=== PATIENT | female | born 1960 | race Caucasian/White ===

== ENCOUNTER 2020-09-15 00:51 | Outpatient (CLI) | payer OTHER, SELFPAY ==
--- NOTE | 2020-09-15 06:30 | DI.MAMMO_ITS ---
Exam(s) MAMMO SCREENING EXAM: MAMMO SCREENING CLINICAL HISTORY: screening,Z12.39 TECHNIQUE: Mammograms were interpreted according to the usual protocol including computer analysis w [employer] CAD system, tomosynthesis and C-view imaging. COMPARISON: FINDINGS: The breasts are of moderate density with fairly symmetrical distribution of fibroglandular tissue. N o dominant mass or clumped microcalcification is identified in either breast. Examination is compare d with previous examination of May 2010 and there is increased prominence of a focal area of asymme tric density of the retroareolar portion of the left breast seen on CC view only. Additional mammogr aphic views of left breast requested to include a CC spot compression view. No other significant lashay nge seen. IMPRESSION: Additional mammographic views of the left breast requested as described above to include a CC spot co mpression view. Breast ultrasound may be indicated as well depending on the results of the additiona l mammographic views. BI-RADS Category 0 - Assessment Incomplete: Need additional imaging evaluation Breast Density - Category B - Scattered areas of fibroglandular density
== END 2020-09-15 01:11 ==
PROVIDERS: PCP Nurse Practitioner Adult Health; Visit Provider Nurse Practitioner Adult Health
DX: Z12.31 Encounter for screening mammogram for malignant neoplasm of breast (principal); R92.8 Other abnormal and inconclusive findings on diagnostic imaging of breast
CPT/HCPCS: 77063; 77067

== ENCOUNTER 2020-09-15 03:25 | Outpatient (CLI) | payer OTHER, SELFPAY ==
[2020-09-15 09:01] LABS: ALT 21 U/L (14-59); AST 12 U/L (15-37); Albumin 3.6 g/dL (3.4-5.0); Alkaline Phosphatase 82 U/L (46-116); Anion Gap 10.4 mmol/L (3-11); BUN 19 mg/dL (7-18); Bilirubin, Total 0.9 mg/dL (0.2-1.0); CO2 25.6 mmol/L (21.0-32.0); CREATININE 0.8 mg/dL (0.55-1.02); Calcium 8.9 mg/dL (8.5-10.1); Calculated LDL 113 mg/dL (<100); Chloride 108 mmol/L (98-107); Cholesterol 217 mg/dL (<200); Glucose 104 mg/dL (74-106); HDL Cholesterol 85 mg/dL (40-60); Potassium 4.6 mmol/L (3.5-5.1); Sodium 144 mmol/L (136-145); TSH (W/Ref FT4) 2.05 uIU/mL (0.36-3.74); Total Protein 7.1 g/dL (6.4-8.2); Triglyceride 97 mg/dL (<150)
== END 2020-09-15 03:26 | disposition home or self-care (01) ==
LOC: LBO 03:25
PROVIDERS: PCP Nurse Practitioner Adult Health; Visit Provider Nurse Practitioner Adult Health
DX: E66.9 Obesity, unspecified (principal); Z68.30 Body mass index [BMI] 30.0-30.9, adult; Z13.220 Encounter for screening for lipoid disorders; Z13.1 Encounter for screening for diabetes mellitus; Z13.29 Encounter for screening for other suspected endocrine disorder
CPT/HCPCS: 36415; 80053; 80061; 84443

== ENCOUNTER 2020-10-14 02:09 | Outpatient (CLI) | payer OTHER, SELFPAY ==
--- NOTE | 2020-10-14 | DI.US_ITS ---
Exam(s) US BREAST LT COMPLETE EXAM: US BREAST LT COMPLETE CLINICAL HISTORY: F/U MAMMO, INCREASED PROMINENCE ASYMMETRIC DENSITY. TECHNIQUE: Complete ultrasound of the LEFT breast was performed including all 4 quadrants, the retro areolar region, and the ipsilateral axilla. COMPARISON: Prior mammograms were reviewed. today's diagnostic left breast mammogram images were als o reviewed FINDINGS: THERE IS NO EVIDENCE OF SOLID OR SIGNIFICANT CYSTIC LESIONS IN ALL 4 QUADRANTS of the left breast. Also no findings in the immediate retroareolar region. No dilated ducts. No evidence of obvious pap illoma. Ipsilateral left axilla is negative for significant adenopathy. IMPRESSION: Negative complete left breast ultrasound Appropriate follow-up is repeat left breast MAMMOGRAM in 6 months. Findings recommendations were discussed by myself with the patient today. BI-RADS Category 3 - 6 month - Probably Benign Finding: Recommend follow-up mammography in 6 months Breast Density - Category B - Scattered areas of fibroglandular density Breast density Category C or D implies that the patient has dense breast tissue. Dense breast tissue can make it harder to find cancer on a mammogram. Dense breast tissue is also associated with an incr eased risk of breast cancer. This information about the result of the mammogram report was provided to the patient to raise their awareness. Use this report when you speak with the patient about their risks for breast cancer, which includes their family history. At that time, you may recommend additional screening tests (Ultrasoun d or MRI) as these tests may add significant information. A negative radiographic report should not delay biopsy if a dominant or clinically suspicious mass is present. Up to ten percent of cancers are not identified on mammography. A negative report may reinforce clinical impression. Adenosis and dense breasts may obscure an underlying neoplasm. False positive reports average 6 to 10%. Patient will receive a letter notifying them of these results.
--- NOTE | 2020-10-14 11:00 | DI.MAMMO_ITS ---
Exam(s) MG MAMMO SCREEN CALL BACK UNI EXAM: MG MAMMO SCREEN CALL BACK UNI LEFT AND COMPLETE LEFT BREAST ULTRASOUND CLINICAL HISTORY: F/U MAMMO, INCREASED PROMINENCE ASYMMETRIC DENSITY. TECHNIQUE: Unilateral spot mammographic images were obtained with 3D tomosynthesis and utilizing [employer] aided detection (CAD). . Breast Ultrasound was also performed. COMPARISON: Prior mammograms were reviewed. This additional imaging was performed due to findings described on the recent screening mammogram of . FINDINGS: Additional mammographic views performed todaydo not dissipate the recently described nodular density in the retroareolar region however, on 1 image it appears to have a notch and therefore may be a smal l lymph node. Ultrasound performed today reveals no significant focal findings.. This implies that the nodule seen on the mammogram is probably a benign intramammary lymph node. This was a complete breast ultrasound- see separate report. IMPRESSION: As above. Please see separate breast ultrasound dictation report from today. Appropriate follow-up is repeat left breast MAMMOGRAM in 6 months. The patient was informed of these findings and recommendations by myself prior to leaving the depart ent today. BI-RADS Category 3 - 6 month - Probably Benign Finding: Recommend follow-up mammography in 6 months Breast Density - Category B - Scattered areas of fibroglandular density Breast density Category C or D implies that the patient has dense breast tissue. Dense breast tissue can make it harder to find cancer on a mammogram. Dense breast tissue is also associated with an incr eased risk of breast cancer. This information about the result of the mammogram report was provided to the patient to raise their awareness. Use this report when you speak with the patient about their risks for breast cancer, which includes their family history. At that time, you may recommend additional screening tests (Ultrasoun d or MRI) as these tests may add significant information. A negative radiographic report should not delay biopsy if a dominant or clinically suspicious mass is present. Up to ten percent of cancers are not identified on mammography. A negative report may reinforce clinical impression. Adenosis and dense breasts may obscure an underlying neoplasm. False positive reports average 6 to 10%. Patient will receive a letter notifying them of these results.
== END 2020-10-14 02:29 ==
PROVIDERS: PCP Nurse Practitioner Adult Health; Visit Provider Nurse Practitioner Adult Health
DX: Z12.31 Encounter for screening mammogram for malignant neoplasm of breast (principal); R92.8 Other abnormal and inconclusive findings on diagnostic imaging of breast
CPT/HCPCS: 76642; 77063; 77067

== ENCOUNTER 2020-11-24 12:48 | Outpatient (REF) | payer OTHER, SELFPAY ==
--- NOTE | 2020-11-24 12:30 | PAPFT_PTH ---
PATIENT: Ingrid Pinzon LOC: [facility] U#:[id number] AGE/SX: 60/F ROOM: RE11/24/[address]: Antoinette Lawrence APRN : 1960 BED: DIS: 11/24/2020 SPEC #: [id number] RECD: 11/25/20 13:02 STATUS: CHITO REQ #: [id number] ANDRESSA: 11/24/20 12:[address]: Antoinette Lawrence DEPT: [facility] Cytology RECD BY: Viridiana Forman Tissues: 1 - CX/ENDOCX FOR PAP SMEARS Procedures: PAP THIN PREP/UVM Screening HPV DNA PROBE Comments: [id number]
== END 2020-11-24 12:49 | disposition home or self-care (01) ==
LOC: LBN 12:48
PROVIDERS: PCP Nurse Practitioner Adult Health; Visit Provider Nurse Practitioner Adult Health
DX: Z12.4 Encounter for screening for malignant neoplasm of cervix (principal); Z11.51 Encounter for screening for human papillomavirus (HPV); Z87.42 Personal history of other diseases of the female genital tract
CPT/HCPCS: 88142; 87624

== ENCOUNTER 2021-04-07 19:38 | Outpatient (REF) | payer OTHER, SELFPAY ==
[2021-04-07 16:28] LABS: Source Nasal/Nares
[2021-04-07 20:42] LABS: COVID-19 PCR Negative (Negative)
== END 2021-04-07 19:39 | disposition home or self-care (01) ==
LOC: LBN 19:38
PROVIDERS: PCP Nurse Practitioner Adult Health; Visit Provider Advanced Practice Midwife
DX: Z20.822 Contact with and (suspected) exposure to COVID-19 (principal)
CPT/HCPCS: 87635

== ENCOUNTER 2021-05-17 02:11 | Outpatient (CLI) | payer OTHER, SELFPAY ==
[2021-05-17 09:54] LABS: Anion Gap 7.5 mmol/L (3-11); BUN 14 mg/dL (7-18); CO2 28.5 mmol/L (21.0-32.0); CREATININE 0.7 mg/dL (0.55-1.02); Calcium 8.9 mg/dL (8.5-10.1); Chloride 107 mmol/L (98-107); Glucose 100 mg/dL (74-106); Magnesium 2.1 mg/dL (1.8-2.4); Potassium 4.3 mmol/L (3.5-5.1); Sodium 143 mmol/L (136-145); TSH (W/Ref FT4) 3.33 uIU/mL (0.36-3.74)
== END 2021-05-17 02:12 | disposition home or self-care (01) ==
LOC: LBO 02:11
PROVIDERS: PCP Nurse Practitioner Adult Health; Visit Provider Nurse Practitioner Adult Health
DX: R00.2 Palpitations (principal)
CPT/HCPCS: 36415; 80048; 83735; 84443

== ENCOUNTER 2021-08-02 02:28 | Emergency (ER) | payer OTHER, SELFPAY ==
[2021-08-02 02:45] VITALS: BP 164/81; PULSE 80; RESP 18; TEMP 36.7; O2SAT 98
--- NOTE | 2021-08-02 02:45 | DI.RAD_ITS ---
Exam(s) XR NASAL BONES EXAM: XR NASAL BONES CLINICAL HISTORY: Fall, pain at R nasal. TECHNIQUE: 2D digital imaging was performed. COMPARISON: No exams were available for comparison FINDINGS: 3 views There fractures of the nasal bone, including a mildly depressed fracture of the tip of the nasal bone . There are no fluid levels in the maxillary scratch sinuses. IMPRESSION: Nasal bone fracture lines. Mild depression of the tip fragment. DATA REPOSITORY: RADIATION DOSE DELIVERED:
--- NOTE | 2021-08-02 02:45 | DI.RAD_ITS ---
Exam(s) XR TOE RT GREAT EXAM: XR TOE RT GREAT CLINICAL HISTORY: fall, pain. TECHNIQUE: 2D digital imaging was performed. COMPARISON: No exams were available for comparison FINDINGS: 3 views No evidence of fracture nor dislocation. No osseous lesions nor erosions. No radiopaque foreign bod y. Some degenerative changes evident in the medial aspect of the articulation between the base of th e great toe metatarsal and the medial cuneiform bone. IMPRESSION: As above. No fractures DATA REPOSITORY: RADIATION DOSE DELIVERED:
--- NOTE | 2021-08-02 02:59 | ED.GENADUL_ITS ---
Discharge Plan Disposition Patient Disposition: HOME Condition: Improving Discharge Details Clinical Impression: Facial laceration, Fracture closed, nasal bone Primary Care Provider: Antoinette Lawrence ED Provider: Arash Honeycutt Home Meds and New Rx's Prescriptions: Continued loratadine 10 mg capsule 10 mg PO DAILY [id number] Discharge Instructions Instructions: Nasal Fracture (ED), Facial Laceration (ED) Additional Instructions: Your tetanus is up-to-date as of 2020. Sutures will slowly dissolve over approximately 7 days time. Return if you develop a fever, foul-smelling discharge from the wound, or any other acute concerns. You will likely have increased muscular soreness tomorrow. You may develop bruising around the right eye and face. 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 She tripped on a cord in the patient's room falling over and striking her right forehead on the ground and damaging her right great toe. No loss of conscious. No neck or back injury. Bleeding ceased with pressure placed at the scene. Patient was brought to the ER for evaluation. She states her tetanus status is up-to-date. X-ray reveals minimally displaced nasal bone fracture. No evidence of bony injury of the foot. Patient was anesthetized, liberally cleansed and examined i n a bloodless field without evidence of foreign body of the supraorbital laceration. It was repaired with 2 interrupted absorbable sutures. Patient stable and appropriate for discharge to home. HPI General Mode of arrival: ambulatory . Date/Time Provider Initiated Documentation: 08/02/21 02:28 . Limitations to Documentation: no limitations . Information obtained by: patient . History of Present Illness 60 year old F presents to the emergency department with the chief complaint of Fall at work, R eye and R toe pain, described as moderate, Quality is described as dull, and is localized to the head and right. Patient reports no radiation. Patient started experiencing this minute(s) and it has been constant. improves with No relieving factors improve symptom(s), No exacerbating factors reported . Patient notes headaches; denies syncope. Patient did receive the following treatments prior to arrival, none Related Data Home Medications Medication Instructions Recorded Confirmed loratadine 10 mg capsule 10 mg PO DAILY PRN 08/06/20 08/02/21 Allergies Allergy/AdvReac Type Severity Reaction Status Date / Time ciprofloxacin [From Cipro] Allergy Severe rash Verified 08/02/21 02:51 shellfish derived Allergy Severe angioedema Verified 08/02/21 02:51 morphine Allergy Intermediate body rash, Verified 08/02/21 02:51 [From Duramorph (PF)] hives General Stated Complaint: Laceration JM: 3 Review of Systems Narrative: Denies loss of conscious. No neck/chest/back pain. Mild right toe pain. Otherwise well. [facility] All Active Problems (Updated 08/02/21 @ 03:38 by Arash Honeycutt MD) Facial laceration (Acute) Fracture closed, nasal bone (Acute) Palpitations (Acute) Elevated cholesterol (Chronic) Not a statin candidate--> TLCs Impaired fasting glucose (Chronic) 104 in 2020 5.5% 2015 & 2020 Category 3 mammography result with short follow-up interval suggested for probably benign finding (Acute) [facility] [place] second read L breast U/S: neg 12/2020 Obesity (BMI 30-39.9) (Chronic) Medical History Anemia lindsay-menopausal Surgical History History of 2 sections 11/1983 and 06/22/1988 S/P total knee arthroplasty (~2019) left S/P total knee arthroplasty (~2018) right Family History Mother , 87yo, ?SD Diabetes Father , age 59 Lung cancer Paternal Grandmother Cancer Social History Smoking/Tobacco Use Status: Never Smoking risk assessment performed?: Yes Alcohol Intake: current Alcohol Intake frequency: a few times a month Alcohol type: beer and wine Drug use: Never Substance use type: does not use Adopted: No Caregiver/Support person: No Foster care: No Household members: spouse Housing: condominium Do you need help understanding health information?: Rarely current occupation: instrument and control technician at [employer] Sexually active: Yes Do you think of yourself as: straight/heterosexual Current gender identity: female What is your relationship status?: Panel score (0-1 are the most socially isolated patients): 1 What type of physical activity do you participate in: walking Duration: 30-45 minutes/day Frequency: 3-4 times per week Seatbelt use: always Helmet use: No (NA) Drive intox or ride w/intox sprinkling truck driver: No Working smoke detector in home: Yes Fire extinguisher in home: Yes Carbon monox detector in home: Yes Do you feel safe at home: Yes Do you feel safe in your relationship?: Yes Exam Narrative Exam Narrative: GEN: awake, alert, oriented 3. Pleasant, well groomed, interactive. HEAD: Normocephalic ENT: Mucous membranes moist, oropharynx unremarkable, External ear exam unremarkable. No facial anesthesia. The right aspect of the nasal bridge is tender and mildly swollen. There is a horizontally oriented 1 cm laceration above the right eyebrow. EYES: PERRL, EOMI NECK: Full ROM, no KAREN, no menigismus CHEST/RESP: Nontender, clear to auscultation bilateral, no wheeze/rhonchi/rales CARDIOVASCULAR: RRR, no murmur, rub solo. 2+ Rad pulse bilateral ABDOMEN: Soft, nontender, no mass. +Bowel sounds EXT: Full ROM, no edema, no rash. Right great toe tender to palpation Neuro: Grossly normal neurologic exam, conversant, interactive. Psych: Speech fluent, thoughts congruent, affect normal Course Vital Signs Vital signs: Vital Signs Temperature 36.7 C 08/02/21 02:45 Pulse 80 08/02/21 02:45 Respiratory Rate 18 08/02/21 02:45 Blood Pressure 164/81 H 08/02/21 02:45 Pulse Oximetry 98 08/02/21 02:45 Temperature 36.7 C 08/02/21 02:45 Temperature Source Skin 08/02/21 02:45 Pulse 80 08/02/21 02:45 Respiratory Rate 18 08/02/21 02:45 Respiratory Effort 08/02/21 02:49 Blood Pressure 164/81 H 08/02/21 02:45 Blood Pressure Position Sitting 08/02/21 02:45 Pulse Oximetry 98 08/02/21 02:45 Oxygen Delivery Method Room Air 08/02/21 02:45 Oxygen Flow Rate 0 08/02/21 02:45 Pain Level 4 08/02/21 02:49 Procedures Laceration Laceration 1: Site: face Side (If applicable): right Size (cm): 1.5 Description: linear Depth: simple, single layer Local Anesthetic: Lidocaine 1% Amount of anesthesia used (mL): 1 Pre-repair: wound explored and deep structures intact Skin layer closed with: vicryl Size (cm): 5-0 Number of sutures: 2
[2021-08-02] MEDS: Acetaminophen 500 MG TAB 1000 MG PO (03:06)
--- NOTE | 2021-08-02 05:13 | DI.VRAD_ITS ---
PROCEDURE INFORMATION: Exam: XR Nasal Bones Exam date and time: 08/02/2021 3:16 AM Age: 60 years old Clinical indication: Injury or trauma; Work related; Blunt trauma (contusions or hematomas); Nose; Injury date: 08/02/21; Injury details: Fall, pain at R nasal TECHNIQUE: Imaging protocol: XR of the nasal bones. Views: Minimum of 3 views COMPARISON: No relevant prior studies available. FINDINGS: Sinuses: Well aerated. No opacification. Bones/joints: Minimal irregularity to the left nasal bone on the lateral projection Right nasal bone appears intact Soft tissues: Question mild swelling over the left nasal bone IMPRESSION: Minimal irregularity to the left nasal bone. Minimal fracture not excluded Dictated and Authenticated by: Mathew Bryant MD. Ordering:BENNIE Antoine MD
--- NOTE | 2021-08-02 05:14 | DI.VRAD_ITS ---
PROCEDURE INFORMATION: Exam: XR Right Toe(s) Exam date and time: 08/02/2021 3:18 AM Age: 60 years old Clinical indication: Injury or trauma; Work related; Blunt trauma; Toes; Right; Injury date: 08/02/21; Injury details: Fall, pain TECHNIQUE: Imaging protocol: XR Right toes. Views: Minimum 2 views. COMPARISON: No relevant prior studies available. FINDINGS: Bones/joints: No acute fracture or dislocation. Mild degenerative changes noted Soft tissues: Normal. IMPRESSION: No acute findings. Dictated and Authenticated by: Mathew Bryant MD. Ordering:BENNIE Antoine MD
== END 2021-08-02 03:41 | disposition home or self-care (01) ==
LOC: ER 03:24
PROVIDERS: Emergency Provider Emergency Medicine; PCP Nurse Practitioner Adult Health
DX: S01.81XA Laceration without foreign body of other part of head, initial encounter (principal); S02.2XXA Fracture of nasal bones, initial encounter for closed fracture; S99.821A Other specified injuries of right foot, initial encounter; W01.0XXA Fall on same level from slipping, tripping and stumbling without subsequent striking against object, initial encounter; Y99.0 Civilian activity done for income or pay
CPT/HCPCS: 12011; 99284; 70160; 73660; 99283

== ENCOUNTER 2021-11-28 18:53 | Outpatient (REF) | payer OTHER, SELFPAY ==
[2021-11-28 17:39] LABS: Bilirubin Negative (Negative); Blood Large (Negative); Clarity Cloudy (Clear); Glucose Negative (Negative); Ketones Negative (Negative); Leukocyte Esterase Large (Negative); Nitrite Negative (Negative); Urobilinogen 0.2 EU/dL (Up TO 0.2)
[2021-11-28 17:49] LABS: Epithelial Cells Negative HPF (Negative); Other Cells Mod Transitional (Negative); RBC >50 HPF (0-2); WBC >50 HPF (0-5)
[2021-11-28 17:50] LABS: Bacteria Rare HPF (Negative); C & S Indicated? Yes; Crystals Negative HPF (Negative); Mucus Negative (Negative)
== END 2021-11-28 18:54 | disposition home or self-care (01) ==
LOC: LBN 18:53
PROVIDERS: PCP Nurse Practitioner Adult Health; Visit Provider Nurse Practitioner Adult Health
DX: R30.0 Dysuria (principal)
CPT/HCPCS: 81003; 81015; 87086

== ENCOUNTER 2021-12-09 06:11 | Day surgery (SDC) | payer OTHER, SELFPAY ==
--- NOTE | 2021-12-08 10:59 | W.PM.HP.N ---
Date of service: 12/09/21 Assessment and Plan Assessment and plan (1) Colon cancer screening: Status: Acute Assessment and plan: Plan: Colonoscopy w/ general & natural airway. The?patient will be scheduled by my office. The pt understands that they need to do a bowel prep and the importance of hydration during this.? The patient understands there is a theoretical risk of renal failure.? For healthy patients we use Gatorade/Miralax Prep.? ?For anyone with renal concerns- GoLytely will be used. Plavix and coumadin will need to be held except in unusual circumstances. ? Patients in A. Fib do not need to be bridged with Lovenox or on CVA prophylaxis.? A baby ASA can be continued but full dose ASA needs to be stopped for 10 days prior to the procedure. A complete H & P is required within 30 days of the procedure.? GETA w/natural airway is used for the colonoscopy.? Colonoscopy does not require antibiotics prophylaxis. Thank you for allowing me to participate in the care of this Patient.? A copy of the Endoscopy report will be forwarded to your office. Informed consent is obtained for the procedural (explained in simple layman's terms that?the pt and/or family could understand) explaining risks vs benefits and alternatives to the procedure and consequences if we do not do the procedure and need/rational for the procedure. Risks include but are not limited to: bleeding, infection, perforation of colon.? This would necessitate emergency surgery to repair the damage w/ possible ostomy; and other associated complications w/ the required surgery. ? Also complications of anesthesia including aspiration, [place]/CVA/. I discussed with the?patient would they could expect during the procedure, post procedure and recovery time and risks.? The patient understands that they need to have a ride home after the procedure.? The patient was given all this information in writing and expressed understanding. to your office.? If there are any questions or concerns please feel free to contact our office.? Patients at highest risk for IE???Prophylaxis is suggested only in the setting of conditions associated with the highest risk of an adverse outcome if IE occurs. These include [7https://www.Viva[employer].com/contents/[email or web address]-[email or web address]-amk-[email or web address]-[email or web address]-[email or web address]/abstract/7]: ?Prosthetic cardiac valve or material ?Presence of cardiac prosthetic valve ?Transcatheter implantation of prosthetic valves ?Cardiac valve repair with devices, including annuloplasty, rings, or clips ?Left ventricular assist devices or implantable heart ?Previous, relapse, or recurrent IE ?Congenital heart disease ?Unrepaired cyanotic congenital heart disease, including palliative shunts and conduits ?Completely repaired congenital heart defect with prosthetic material or device, whether placed by surgery or by transcatheter during the first six months after the procedure ?Repaired congenital heart disease with residual defects at the site of or adjacent to the site of a prosthetic patch or prosthetic device ?Surgical or transcatheter pulmonary artery valve or conduit placement such as Sherlyn valve and Contegra conduit ?Cardiac transplant recipients who develop cardiac valvulopathy Situation ?Agent? Adult?? Dosing? Child Dosing Adults Children Oral Amoxicillin? 2g po? 50mg/Kg? po 2 g 50 mg/kg Unable to take oral medication Ampicillin? 2g IMor IV? 50mg/kg IM or IV 2 g IM or IV 50 mg/kg IM or IV OR ? ? Cefazolin or ceftriaxone? 1g IM or IV? 50mg/kg IM or IV 1 g IM or IV 50 mg/kg IM or IV Allergic to penicillin or ampicillin?oral Cephalexin?2g po? 15mg/kg 2 g 50 mg/kg OR ? ? Azithromycin or clarithromycin? 500mg 500 mg 15 mg/kg OR ? ? Doxycycline? 100mg 100 mg <45 kg, 2.2 mg/kg >45 kg, 100 mg Allergic to penicillin or ampicillin and unable to take oral medication Cefazolin or ceftriaxone? 1g IM or IV 1 g IM or IV 50 mg/kg IM or IV Antibiotic regimens for prevention of endocarditis prior to dental procedures* Clindamycin is no longer recommended for antibiotic prophylaxis prior to dental procedures. History of Present Illness Narrative: clinic consult 08/21: Mrs Pinzon is a pleasant 60-year-old female who is here today to discuss her first screening colonoscopy.? She denies any melena, hematochezia, abdominal pain, unintentional weight loss or family history of colon cancer.? She does have an external hemorrhoid which sometimes will bleed a little bit on the tissue paper.? Otherwise she is healthy.? She only takes loratadine for seasonal allergies.? She does tell me that she has difficulty waking up from anesthesia even propofol. She denies any chest pain or shortness of breath with activity. Anesthesia: general (without airway) Previous surgical intolerances: No Previous surgical complications: No Pulmonary risk factors: age > 60 Date of surgery: 09/23/21 Planned procedure: Yes Sleep apnea risks: No Can climb one flight of stairs (12-13 steps) in less than 30 seconds without stopping and without symptoms: Yes The surgery proposed for this patient is: low risk Active cardiac conditions: none Active risk factors: none ASA (acetylsalicylic acid): not used Beta blockers: not used -Patient is here today for colonoscopy. She completed a bowel prep. The resulting effluent is just a clear yellow. She is not having any abdominal pain or nausea currently. She is not currently having any chest pain/chest pressure, shortness of breath, productive cough, fever or chills. She has no signs of COVID/no one in the household has COVID. She has not had any changes in her medications, allergy profile or health status. She has had no recent visits to the emergency department or recent accidents. All questions are answered and she is stable for the proposed procedure today. Review of Systems All systems reviewed & are unremarkable except as noted in HPI and below PFSH All Active Problems (Updated 12/08/21 @ 11:03 by Naty Coats DO) Colon cancer screening (Acute) Gross hematuria (Acute ~10/2021) probably UTI Palpitations (Acute) Elevated cholesterol (Chronic) Not a statin candidate--> TLCs Impaired fasting glucose (Chronic) 104 in 2020 5.5% 2015 & 2020 Category 3 mammography result with short follow-up interval suggested for probably benign finding (Acute) [facility] [place] breast U/S: neg 12/2020 Obesity (BMI 30-39.9) (Chronic) Medical History Anemia lindsay-menopausal Great toe pain Right Surgical History History of 2 sections 11/1983 and 06/22/1988 S/P total knee arthroplasty (~2019) left S/P total knee arthroplasty (~2018) right Family History Mother , 87yo, ?[place] Diabetes Father , age 59 Lung cancer Paternal Grandmother Cancer Social History Smoking/Tobacco Use Status: Never Smoking risk assessment performed?: Yes Alcohol Intake: current Alcohol Intake frequency: a few times a month Alcohol type: beer and wine Drug use: Never Substance use type: does not use Adopted: No Caregiver/Support person: No Foster care: No Household members: spouse Housing: condominium Do you need help understanding health information?: Rarely current occupation: production supervisor off shift at [employer] Sexually active: Yes Do you think of yourself as: straight/heterosexual Current gender identity: female What is your relationship status?: Panel score (0-1 are the most socially isolated patients): 1 What type of physical activity do you participate in: walking Duration: 30-45 minutes/day Frequency: 3-4 times per week Seatbelt use: always Helmet use: No (NA) Drive intox or ride w/intox train driver: No Working smoke detector in home: Yes Fire extinguisher in home: Yes Carbon monox detector in home: Yes Do you feel safe at home: Yes Do you feel safe in your relationship?: Yes Meds Allergies and Home Medications Allergies Allergy/AdvReac Type Severity Reaction Status Date / Time ciprofloxacin [From Cipro] Allergy Severe rash Verified 12/01/21 08:42 shellfish derived Allergy Severe angioedema Verified 12/01/21 08:42 morphine Allergy Intermediate body rash, Verified 12/01/21 08:42 [From Duramorph (PF)] hives Home Medications Medication Instructions Recorded Confirmed Type loratadine 10 mg capsule 10 mg PO DAILY PRN 08/06/20 12/01/21 History Exam Narrative Exam Narrative: GENERAL APPEARANCE: Alert, healthy appearance, oriented, in no acute distress SKIN: No rashes.? No breakdown HYDRATION: Well hydrated HEAD, EYES, EARS, NECK, THROAT: Head is normocephalic, pupils equal, round, reactive to light and accommodation, ocular movement intact, sclera clear and no jaundice. ?Dentition intact. NECK: Supple, Trachea midline. No JVD. LUNGS: normal respiration/nl chest excursion. ?Clear to auscultation B/l no R/R/W HEART: Regular rate and rhythm, EXTREMITY: No edema or cyanosis? no leg pain, redness, swelling.? ABDOMEN: non tender to palpation, no masses or distention, no hernias. Normal bowel sounds NEURO: no focal neuro deficits.
--- NOTE | 2021-12-08 18:46 | W.COLOREPORT ---
Colonoscopy Report Date of procedure: 12/09/21 Pre-op diagnosis general: CRC screening Post-op diagnosis procedure note: other (I/E hemorrhoids. ) Surgeon: Naty Coats Anesthesia Type: General:No Airway Estimated blood loss (mL): 0 Pathology: none sent Complications: None Disposition: same day Prep: Miralax/Dulcolax Retraction Time: 7 Procedure Description: After informed consent was obtained the patient was taken to the procedure room and placed in a left decubitous position. Monitors were applied and a time out was done. The patients name, date of , procedure, allergies to medications and metal in their body was reviewed. The patient was then sedated. Once sedated and comfortable a rectal exam was done. External exam: lg ext hemorrhoids without thrombosis. Internal exam revealed a normal sphincter tone and no palpable masses. The scope was then introduced and retrofelexed. Grade 1 internal hemorrhoids and hemorrhoidal tags, were identified. The scope was then advanced to the cecum without difficulty. The TI and appendiceal orifice were identified. The prep was BB PS 2 in the cecum and right colon in 3 in transverse and left/sigmoid and rectum for a total of 8 . The scope was then slowly retracted over 7 minutes back into the rectum. There are no polyps, AVMs, or diverticula visualized today. The colon is pink and healthy with a normal vascular pattern.. The scope was removed and the patient was woken up and taken back to Same day surgery in stable condition. The patient tolerated the procedure well and there were no immediate complications. Follow up: The patient should follow up in 10 years unless they develop changes in bowel habits or other new gastrointestinal complaints.
--- NOTE | 2021-12-08 18:48 | PDOC.DSDIS_ITS ---
Discharge Plan Disposition Patient Disposition: HOME Condition: Good Discharge Details Reason For Visit: colon scope Attending Provider: Naty Coats Primary Care Provider: Antoinette Lawrence Home Meds and New Rx's Prescriptions: No Action loratadine 10 mg capsule 10 mg PO DAILY PRN Discharge Instructions Additional Instructions: DSU Colonoscopy Post- Op Instructions Instructions for Everyone who is given Anesthesia: For your safety, please do the following for the next twenty-four (24) hours: *Do Not operate a motor vehicle (car, truck, motorcycle, etc.) *Do Not drink alcoholic beverages or use any recreational drugs for the first 24 hours or while taking pain medications. The medications in your body may have a reaction that can be dangerous. *Do Not make any important decisions or sign any important papers. Findings: ext. hemorrhoids Otherwise normal colon Follow up: Repeat in 10 years time 1. No lifting over 20 pounds or strenuous activity for the first 24 hours after your procedure. After 24 hours there are no restrictions on your activity but you may feel fatigued for a few days. 2. After you arrive home you may have a light meal and return to your normal diet as you can tolerate it without feeling sick to your stomach. 3. You may have a bloated, gaseous feeling in your belly (abdomen) after a colonoscopy. Passing gas and belching will help. Walking or lying down on your left side with your knees flexed may relieve the discomfort. Call the office at [phone] (Office) or [phone] (Hospital) right away if you notice any of the following: a.Vomiting of blood or ?coffee ground stools?. b.Rectal bleeding 1Tbsp, blood clots or continuous bleeding. c.Severe belly (abdominal) pain. d.A hard distended belly (abdomen) and an inability to pass gas. 4. Please don?t expect to have a normal BM (bowel movement) for 2-3 days after your procedure. 5. If there are questions regarding the findings of your procedure, please contact your doctor 6. If you are unable to contact your doctor with a problem, contact the hospital at [phone]. 7. Continue all your regular medications unless directed otherwise. I understand the above instructions and have no questions. Signature of Patient or Adult Escort Name of Responsible Adult Escort Signature of Nurse Date/Time Activity:: see above Diet:: see above Discharge Orders Discharge Orders: Discharge Order (Routine); Ordered 12/08/21 Ordered By: Naty Coats DS: Diagnosis Discharge Diagnosis (1) Colon cancer screening: Status: Acute (2) External hemorrhoid: Status: Acute (3) S/P colonoscopy: Status: Acute
[2021-12-09 06:32] VITALS: BP 138/88; PULSE 97; RESP 16; TEMP 36.5; O2SAT 95
[2021-12-09] MEDS: Lactated Ringers 1,000 ML 80 ML IV (06:46)
--- NOTE | 2021-12-09 07:03 | W.ANESPRE ---
General Info Date of Service Date Performed: 12/09/21 Height: 5 ft 1.5 in Weight: 78.7 kg Body Mass Index (BMI): 32.2 Surgical Procedure: Operation Date: 12/09/21 07:35 Proposed Procedure Side Surgeon masood Coats, DO Meds Allergies and Home Medications Allergies Allergy/AdvReac Type Severity Reaction Status Date / Time ciprofloxacin [From Cipro] Allergy Severe rash Verified 12/09/21 06:31 shellfish derived Allergy Severe angioedema Verified 12/09/21 06:31 morphine Allergy Intermediate body rash, Verified 12/09/21 06:31 [From Duramorph (PF)] hives Home Medication Medication Instructions Recorded loratadine 10 mg capsule 10 mg PO DAILY PRN 08/06/20 Current Visit Medications: Current Medications Generic Name Dose Route Start Last Admin Trade Name Freq PRN Reason Stop Dose Admin Hyoscyamine Sulfate 0.125 mg 12/09/21 11:06 Hyoscyamine 0.125 Mg Sl/Oral/Chew SL DIRECTED PRN Ringer's Solution 1,000 mls @ 80 mls/hr 12/09/21 06:00 12/09/21 06:46 IV 01/07/22 23:59 80 mls/hr INFUSION GERRY Administration IV Miscellaneous Supplies 1 each 12/09/21 06:00 Iv Access IV 01/07/22 23:59 DIRECTED GERRY Ondansetron HCl 4 mg 12/09/21 11:06 Ondansetron 4 Mg/2 Ml Vial IVP Q4H PRN PRN Nausea / Vomiting Sodium Chloride 0 ml 12/09/21 06:00 Normal Saline Flush 10 Ml Syr IV 01/07/22 23:59 PRN PRN Sodium Chloride 0 ml 12/09/21 06:00 Normal Saline 10 Ml Vial IJ 01/07/22 23:59 DIRECTED PRN Sterile Water 0 ml 12/09/21 06:00 Water,Injection,Sterile 10 Ml Vial IJ 01/07/22 23:59 DIRECTED PRN PFSH Active Problems Active Problems: Problem Status Onset Code Obesity (BMI 30-39.9) E66.9 Category 3 mammography result with short follow-up interval suggested for probably benign finding R92.8 Impaired fasting glucose R73.01 Elevated cholesterol E78.00 Palpitations R00.2 Gross hematuria ~10/2021 R31.0 Colon cancer screening Z12.11 Medical History Medical History Anemia lindsay-menopausal Great toe pain Right Surgical History Surgical History (Updated 12/09/21 @ 06:32 by Mague Gustafson) History of 2 sections 11/1983 and 06/22/1988 History of surgery Right ankle ORIF, per pt. S/P total knee arthroplasty (~2019) left S/P total knee arthroplasty (~2018) right Tobacco Smoking/Tobacco Use Status: Never Alcohol Alcohol Intake: current Alcohol intake frequency: a few times a month Alcohol type: beer and wine Substance Use Substance use: Never Substance use type: does not use Vital Signs and Lab Results Vital Signs Most Recent Vital Signs in EMR: Most Recent Vital Signs Temp Pulse Resp BP Pulse Ox 36.5 C 97 H 16 138/88 95 12/09/21 06:32 12/09/21 06:32 12/09/21 06:32 12/09/21 06:32 12/09/21 06:32 Lab Results Blood Type / Crossmatch: No Data to Display Complete Blood Count: No Data to Display Complete Metabolic Panel: No Data to Display Liver Function Panel: No Data to Display Coagulation Panel: No Data to Display Cardiac Panel: No Data to Display Arterial Blood Gas: No Data to Display Venous Blood Gas: No Data to Display Pancreas Panel: No Data to Display Thyroid Panel: No Data to Display Infectious Disease: Coronavirus (COVID-19)(PCR) Negative (Negative) 12/04/21 14:01 Coronavirus 2019 Source Nasal/Nares 12/04/21 14:01 Blood Cultures: No Data to Display Toxicology Panel: No Data to Display Anesthesia Assessment and Plan Anesthesia History Personal History: PONV and Delayed Emergence Family History: No Family History of Anesthesia Complications Exercise Tolerance Exercise Tolerance: Metabolic Equivalents>4 Pertinent Negatives Pertinent Negatives: No Symptoms of GERD, No Major Cardiovascular Symptoms or Complaints and No Major Pulmonary Symptoms or Complaints Cardiac & Pulmonary Exam Cardiac Exam: Normal S1/S2 Heart Sounds Pulmonary Exam: Clear Bilateral Breath Sounds Implantable Cardiac Device Does patient have a Pacemaker or an ICD?: No Airway Exam Known Difficult Airway: No Mallampati Class: 3 Mouth Opening: Normal (> 3cm) Thyromental Distance: Greater than 3 cm Neck Range of Motion: Full ROM Neck Circumference: Normal Teeth Condition: Normal Dentition ASA Classification ASA Score: ASA 2 Emergency Case?: No NPO Status NPO Status: NPO Clears >2 hours, Solids >8 hours Anesthesia Plan Resuscitation Status: Full Code Anesthesia Technique: General Anesthesia Airway Planned: Natural Airway Monitors Used: Standard Monitors
[2021-12-09 07:17] VITALS: BMI 32.2
[2021-12-09 08:18] VITALS: BP 112/58; PULSE 69; RESP 16; TEMP 36.4; O2SAT 97
--- NOTE | 2021-12-09 08:31 | W.ANESPOSTOP ---
Postoperative Evaluation Date, Time and Location Date Performed: 12/09/21 Time Performed: 08:31 Patient Location: Day Surgery Unit Vital Signs Most Recent Imported Vital Signs: Most Recent Vital Signs Temp Pulse Resp BP Pulse Ox 36.4 C L 69 16 112/58 L 97 12/09/21 08:18 12/09/21 08:18 12/09/21 08:18 12/09/21 08:18 12/09/21 08:18 Pain Score Most Recent Pain Score: Most Recent Pain Score Pain Level 0 12/09/21 08:18 Assessment Mental Status: Awake (Alert & Oriented to Patient Baseline) Airway and Respiratory Function: Patent airway with normal (patient baseline) respiratory exam Cardiovascular Function: Hemodynamically Stable Hydration Status: Adequately Hydrated Nausea & Vomiting: No Nausea or Vomiting Pain: Pt. Denies Any Pain Peripheral Nerve Block: Patient did not receive a nerve block
[2021-12-09 08:45] VITALS: BP 126/71; PULSE 64; RESP 16; TEMP 36.5; O2SAT 97
== END 2021-12-09 09:05 | disposition home or self-care (01) ==
PROVIDERS: PCP Nurse Practitioner Adult Health; Visit Provider Surgery
PROC: 0DJD8ZZ Inspection of Lower Intestinal Tract, Via Natural or Artificial Opening Endoscopic (ICD-10-PCS; CPT 45378; principal; 2021-12-09 07:30)
DX: Z12.11 Encounter for screening for malignant neoplasm of colon (principal); K64.4 Residual hemorrhoidal skin tags; K64.8 Other hemorrhoids
CPT/HCPCS: 45378

== ENCOUNTER 2022-01-16 16:00 | Outpatient (REF) | payer OTHER, SELFPAY ==
[2022-01-16 19:37] LABS: Bilirubin Negative (Negative); Blood Trace-intact (Negative); Clarity Clear (Clear); Glucose Negative (Negative); Ketones Negative (Negative); Leukocyte Esterase Negative (Negative); Nitrite Negative (Negative); Specific Gravity 1.025 (1.005-1.025); Urobilinogen 0.2 EU/dL (Up TO 0.2)
[2022-01-16 20:08] LABS: Bacteria Rare HPF (Negative); C & S Indicated? No; Crystals Negative HPF (Negative); Epithelial Cells Rare HPF (Negative); Mucus Negative (Negative); RBC 0-2 HPF (0-2); WBC Negative HPF (0-5)
== END 2022-01-16 16:01 | disposition home or self-care (01) ==
LOC: LBN 16:00
PROVIDERS: PCP Nurse Practitioner Adult Health; Visit Provider Nurse Practitioner Adult Health
DX: R31.0 Gross hematuria (principal)
CPT/HCPCS: 81003; 81015

== ENCOUNTER → 2022-01-20 01:02 | Outpatient (CLI) | payer OTHER, SELFPAY ==
--- NOTE | 2022-01-20 06:45 | DI.MAMMO_ITS ---
Exam(s) MAMMO SCREENING EXAM: MAMMO SCREENING CLINICAL HISTORY: screening,z12.39. TECHNIQUE: Bilateral full field digital CC and MLO mammographic images were obtained with 3D tomosyn thesis and utilizing computer aided detection (CAD). COMPARISON: Prior mammograms were reviewed, the most recent being September 2020. Prior ultrasound was reviewed. FINDINGS: There has been no significant change in the appearance and distribution of the fibroglandular tissue. There are no CAD designations. Small benign-appearing nodules in the right breast are unchanged and probably benign intramammary lym ph nodes. No new right breast findings. Small asymmetric density in the retroareolar region of the left breast is also unchanged. There are no new spiculated masses in either breast. There are no malignant-appearing microcalcification group s in either breast. There is no significant architectural distortion nor skin thickening-retraction. IMPRESSION: Stable benign-appearing findings. No radiographic evidence of malignancy. BI-RADS Category 2 - Benign Findings Breast Density - Category B - Scattered areas of fibroglandular density Breast density Category C or D implies that the patient has dense breast tissue. Dense breast tissue can make it harder to find cancer on a mammogram. Dense breast tissue is also associated with an incr eased risk of breast cancer. This information about the result of the mammogram report was provided to the patient to raise their awareness. Use this report when you speak with the patient about their risks for breast cancer, which includes their family history. At that time, you may recommend additional screening tests (Ultrasoun d or MRI) as these tests may add significant information. A negative radiographic report should not delay biopsy if a dominant or clinically suspicious mass is present. Up to ten percent of cancers are not identified on mammography. A negative report may reinforce clinical impression. Adenosis and dense breasts may obscure an underlying neoplasm. False positive reports average 6 to 10%. Patient will receive a letter notifying them of these results.
== END ==
PROVIDERS: PCP Nurse Practitioner Adult Health; Visit Provider Nurse Practitioner Adult Health
DX: Z12.31 Encounter for screening mammogram for malignant neoplasm of breast (principal)
CPT/HCPCS: 77063; 77067

== ENCOUNTER 2022-03-10 11:48 | Outpatient (REF) | payer OTHER, SELFPAY ==
[2022-03-10 09:44] LABS: Source Nasal/Nares
[2022-03-10 10:31] LABS: COVID-19 PCR Negative (Negative)
== END 2022-03-10 11:49 | disposition home or self-care (01) ==
LOC: LBN 11:48
PROVIDERS: PCP Nurse Practitioner Adult Health; Visit Provider Obstetrics & Gynecology
DX: R50.9 Fever, unspecified (principal); Z20.822 Contact with and (suspected) exposure to COVID-19
CPT/HCPCS: 87635

== ENCOUNTER → 2023-02-12 00:32 | Outpatient (CLI) | payer OTHER, SELFPAY ==
--- NOTE | 2023-02-12 08:15 | DI.MAMMO_ITS ---
Exam(s) MAMMO SCREENING EXAM: MAMMO SCREENING CLINICAL HISTORY: screening,Z12.39. TECHNIQUE: Bilateral full field digital CC and MLO mammographic images were obtained with 3D tomosyn thesis and utilizing computer aided detection (CAD). COMPARISON: Prior mammograms were reviewed. FINDINGS: There has been no significant change in the appearance and distribution of the fibroglandular tissue. No CAD designations. There are no new spiculated masses nor malignant appearing microcalcification groups. There is no significant architectural distortion nor skin thickening-retraction. IMPRESSION: No radiographic evidence of malignancy. BI-RADS Category 1 - Negative Breast Density - Category B - Scattered areas of fibroglandular density Breast density Category C or D implies that the patient has dense breast tissue. Dense breast tissue can make it harder to find cancer on a mammogram. Dense breast tissue is also associated with an incr eased risk of breast cancer. This information about the result of the mammogram report was provided to the patient to raise their awareness. Use this report when you speak with the patient about their risks for breast cancer, which includes their family history. At that time, you may recommend additional screening tests (Ultrasoun d or MRI) as these tests may add significant information. A negative radiographic report should not delay biopsy if a dominant or clinically suspicious mass is present. Up to ten percent of cancers are not identified on mammography. A negative report may reinforce clinical impression. Adenosis and dense breasts may obscure an underlying neoplasm. False positive reports average 6 to 10%. Patient will receive a letter notifying them of these results.
== END ==
PROVIDERS: PCP Nurse Practitioner Adult Health; Visit Provider Nurse Practitioner Adult Health
DX: Z12.31 Encounter for screening mammogram for malignant neoplasm of breast (principal)
CPT/HCPCS: 77063; 77067

== ENCOUNTER 2023-04-24 11:26 | Outpatient (CLI) | payer OTHER, SELFPAY ==
[2023-04-24 09:41] LABS: Abs Immature Grans 0.02 10^3/uL (0.0-0.06); Absolute Basophil Count 0.07 10^3/uL (0.0-0.2); Absolute Eosinophil Count 0.24 10^3/uL (0.0-0.7); Absolute Lymphocyte Count 2.03 10^3/uL (1.2-3.4); Absolute Monocyte Count 0.53 10^3/uL (0.1-0.8); Absolute Neutrophil Count 4.62 10^3/uL (1.2-6.7); Basophils % 0.9; Eosinophils % 3.2; HCT 43.3 % (36.0-46.0); HGB 13.8 g/dL (11.2-15.7); Immature Grans % 0.3; MCH 30.7 pg (27.0-33.0); MCHC 31.9 % (32.0-36.0); MCV 96 fL (80-95); MPV 9.4 fL (8.0-11.0); Monocytes % 7.1; Neutrophils % 61.5; Platelet Count 333 10^3/uL (130-400); RDW 12.8 % (11.7-14.6); RDW-SD 45.8 fL; WBC 7.51 10^3/uL (4.4-10.8)
[2023-04-24 10:36] LABS: Anion Gap 7.1 mmol/L (3-11); BUN 16 mg/dL (7-18); CO2 27.9 mmol/L (21.0-32.0); CREATININE 0.8 mg/dL (0.55-1.02); Calcium 8.9 mg/dL (8.5-10.1); Calculated LDL 147 mg/dL (<100); Chloride 106 mmol/L (98-107); Cholesterol 273 mg/dL (<200); Glucose 104 mg/dL (74-106); HDL Cholesterol 106 mg/dL (40-60); Sodium 141 mmol/L (136-145); Triglyceride 103 mg/dL (<150); Vitamin B12 321 pg/mL (193-986)
[2023-04-24 11:17] LABS: Hemoglobin A1C 5.3 % (<5.7)
[2023-04-24 11:31] LABS: Vitamin D 25 Total 17.6 ng/mL (30-100)
[2023-04-24 19:44] LABS: HIV-1/2 Ag & Ab Screen Negative (Negative)
[2023-04-24 19:51] LABS: Hepatitis C Ab w Rflx HCV PCR Negative (Negative)
[2023-04-24 19:52] LABS: Hepatitis A Antibody IgM Negative (Negative); Hepatitis B Core Antibody Negative (Negative); Hepatitis B surface Ag Negative (Negative); Hepatitis C Ab w Rflx HCV PCR Negative (Negative)
[2023-04-25 09:52] LABS: Lyme Ab w Rflx to Lyme Confirm Negative (Negative); Syphilis Serology (RPR) Negative (Negative)
[2023-04-25 12:02] LABS: ANA Interpretation Negative (Negative)
[2023-04-26 11:13] LABS: TB Interpretation Negative (Negative); TB1 Ag minus Nil 0.01 IU/ml; TB2 Ag minus Nil 0.01 IU/mL
[2023-04-26 20:40] LABS: Anaplasma phagocytophilum Negative (Negative); B. miyamotoi PCR Negative (Negative); Babesia divergens/MO-1 Negative (Negative); Babesia duncani Negative (Negative); Babesia microti Negative (Negative); Ehrlichia chaffeensis Negative (Negative); Ehrlichia ewingii/canis Negative (Negative); Ehrlichia muris eauclairensis Negative (Negative)
== END 2023-04-24 11:27 | disposition home or self-care (01) ==
LOC: LBO 11:26
PROVIDERS: Nurse Practitioner; PCP Nurse Practitioner Adult Health; Visit Provider Nurse Practitioner Adult Health
DX: E66.9 Obesity, unspecified (principal); E78.00 Pure hypercholesterolemia, unspecified; R73.01 Impaired fasting glucose; Z13.220 Encounter for screening for lipoid disorders; R59.1 Generalized enlarged lymph nodes
CPT/HCPCS: 36415; 80048; 80061; 82306; 86704; 86709; 86803; 87340; 87389; 87798; 82607; 83036; 85025; 86038; 86480; 86592; 86618

== ENCOUNTER → 2023-05-04 01:43 | Outpatient (CLI) | payer OTHER, SELFPAY ==
--- NOTE | 2023-05-04 07:06 | DI.CT_ITS ---
Exam(s) CT NECK CHEST W EXAM: CT NECK CHEST W CLINICAL HISTORY: neck lymphadenopathy,r59.0. TECHNIQUE: Imaging Protocol: Axial computed tomography images with coronal and sagittal reformatted images were created and reviewed. CONTRAST MATERIAL: Intravenous: Contrast Contrast volume:structured data in mlmL COMPARISON: No exams were available for comparison FINDINGS: Orbits and orbital soft tissues: Within normal limits. Visualized paranasal sinuses: There is opacification of a few of the ethmoid air cells. There is al so mild mucosal thickening in the right sphenoid sinus and right maxillary sinus. The visualized mas toid air cells are clear. Nasopharynx: Within normal limits. Oropharynx: Within normal limits. Hypopharynx: Within normal limits. Larynx: Within normal limits. Retropharyngeal space: Within normal limits. Parotids/submandibular: Within normal limits. Thyroid gland: Within normal limits. Lymphadenopathy: There is scattered lymph nodes seen along the level one to level three all measurin g less than 8 mm in short axis diameter which are physiologic in nature. There is a 0.8 x 0.5 cm lymp h node adjacent to the left mid clavicle. (Series 11, image 175). This is near the area marked on t he examination. There is a normal vein also located in the area of the marker in the left neck. Trachea: Within normal limits. Lung apices: Within normal limits. Bones: Within normal limits for the patient's age. Carotids/Jugular: Within normal limits. Soft tissues: Within normal limits. CT chest: Tracheobronchial tree: Patent where visualized. Pulmonary parenchyma: No consolidation or dominant measurable mass. Mild scarring in the lung bases. No focal consolidating infiltrates. Mediastinum and Val: No dominant adenopathy or fluid collection. The esophagus is unremarkable. Thyroid gland: Unremarkable. Pleura: No effusion or pneumothorax. Heart: Mild cardiomegaly. Mild coronary artery calcification. No pericardial effusion. Aorta: Thoracic aorta non-dilated. Mild atherosclerosis. Pulmonary arteries: Due to the timing of the bolus, the pulmonary arteries were not opacified adequat josh for evaluation of pulmonary emboli. No large central pulmonary embolus is present. Upper abdomen: Unremarkable. Lymph nodes: Within normal limits. Bones: Within normal limits for the patient's age. Soft tissues: Unremarkable. IMPRESSION: 1. No significant cervical or thoracic adenopathy. 2. Mild sinusitis. 3. No acute pulmonary process. RADIATION DOSE DELIVERED: 977.44mGy.cm Total DLP 977.44mGy.cm Total DLP DATA REPOSITORY: All CT scans at this facility are submitted to the National Radiology Data Registry (NRDR) Dose Index Registry (DIR) with the [employer] ([employer]). RADIATION OPTIMIZATION: All CT scans at this facility use at least one of these dose optimization te chniques: automated exposure control; mA and/or kV adjustment per patient size (includes targeted exa ms where dose is matched to clinical indication); or iterative reconstruction.
[2023-05-04] MEDS: Omnipaque 350 MG/ML 500 ML BTL-Imaging package 100 ML IJ (08:27)
--- NOTE | 2023-05-04 08:42 | DI.RAD_ITS ---
Exam(s) XR CHEST 2V PA LATERAL EXAM: XR CHEST 2V PA LATERAL CLINICAL HISTORY: neck lymphadenopathy,r59.1 TECHNIQUE: 2D digital imaging was performed of the chest. Two images were obtained. PA and lateral views were obtained. COMPARISON: CT CT NECK CHEST W from 05/04/2023 FINDINGS: MEDIASTINUM: Normal. HEART: Normal. PULMONARY VASCULATURE: Normal. LUNGS: Clear. PLEURAL SPACE: No pleural effusion or pneumothorax. BONE:Within normal limits for the patient's age. OTHER FINDINGS:Normal. IMPRESSION: No acute pulmonary findings. DATA REPOSITORY: RADIATION DOSE DELIVERED:
== END ==
PROVIDERS: PCP Nurse Practitioner Adult Health; Visit Provider Nurse Practitioner
DX: R59.1 Generalized enlarged lymph nodes
CPT/HCPCS: 70491; 71046; 71260